=== PATIENT | male | born 2000 | race Caucasian/White ===

== ENCOUNTER 2021-05-25 07:38 | Emergency (ER) | payer SELFPAY ==
[2021-05-25] MEDS ORDERED: TETANUS & DIPHTHERIA TOX,ADULT 0.5 ML VIAL ONE (08:43)
[2021-05-25] MEDS ORDERED: AMOX/K CLAV 875 MG TAB ONE (08:43)
--- NOTE | 2021-05-25 09:38 | EDPHYS ---
Physician Documentation [facility] Name: Suhail Sanz Age: 20 yrs Sex: Male : 2000 Arrival Date: 05/25/2021 Time: 07:39 Bed 13 Private MD: ED Physician Danis Plasencia HPI: 05/25 07:47 This 20 yrs old Male presents to ER via Unassigned with complaints of Dog pm1 Bite. 07:47 The patient was bitten on the dorsal aspect of right forearm and palmar aspect of right pm1 forearm, by a dog, Patient bitten by his own dog, he was attempting to break up a fight between his dog and raccoon. Patient denies being bitten by raccoon it was at least 2 to 3 feet from the dog, outdoors. Onset: The symptoms/episode began/occurred just prior to arrival. Animal information: The animal was reported to appear healthy. Animal's vaccinations are up to date. Secondary to the bite the patient reports an abrasion, 2 superficial puncture wounds to right forearm. Associated signs and symptoms: The patient has no apparent associated signs or symptoms. The patient has not experienced similar symptoms in the past. The patient has not recently seen a physician. 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 - Social history:: Smoking status: Patient denies any tobacco usage or history of. ROS: 07:47 Constitutional: Negative for fever, chills, and weight loss, Cardiovascular: Negative pm1 for chest pain, palpitations, and edema, Respiratory: Negative for shortness of breath, cough, wheezing, and pleuritic chest pain. 07:47 Neuro: Negative for headache, weakness, numbness, tingling, and seizure. 07:47 MS/extremity: Positive for abrasion, puncture, of the palmar aspect of right forearm and dorsal aspect of right forearm. 07:47 Skin: Positive for Areas as noted in MS/Extremity exam. 07:47 All other systems are negative. Exam: 07:47 Constitutional: This is a well developed, well nourished patient who is awake, alert, pm1 and in no acute distress. Head/Face: Normocephalic, atraumatic. 07:47 Eyes: Exam is negative for acute changes, Extraocular movements: intact throughout. 07:47 ENT: Exam is negative for acute changes, Mouth: no acute changes, Lips: normal, moist, Oral mucosa: normal, pink and intact, moist. 07:47 Cardiovascular: Exam negative for acute changes, Rate: normal, Rhythm: regular, Pulses: no pulse deficits are appreciated. 07:47 Respiratory: Exam negative for acute changes, respiratory distress, shortness of breath. 07:47 Musculoskeletal/extremity: Extremities: grossly normal except: noted in the palmar aspect of right forearm and dorsal aspect of right forearm: abrasion, 2 superficial puncture wound, There is no evidence of laceration, Circulation is intact in all extremities. Sensation intact. 07:47 Skin: Appearance: normal except for affected area, injury, As noted in musculoskeletal/extremity exam. 07:47 Neuro: Exam negative for acute changes, Orientation: is normal, Mentation: is normal, Motor: is normal, moves all fours. Vital Signs: 07:50 BP 145 / 93; Pulse 94; Resp 16; Temp 98.0; Pulse Ox 99% ; Weight 56.7 kg; Height 5 ft. ll1 10 in. (177.80 cm); Pain 5/10; 07:50 Body Mass Index 17.94 (56.70 kg, 177.80 cm) ll1 MDM: 07:41 Patient medically screened. pm1 08:04 Data reviewed: vital signs. Data interpreted: Pulse oximetry: on room air is 99 %. pm1 Interpretation: normal. 09:36 Counseling: I had a detailed discussion with the patient and/or guardian regarding: the pm1 historical points, exam findings, and any diagnostic results supporting the discharge/admit diagnosis, radiology results, the need for outpatient follow up, to return to the emergency department if symptoms worsen or persist or if there are any questions or concerns that arise at home. 05/25 07:47 Order name: Forearm Right XRAY pm1 Administered Medications: 08:25 Drug: Tetanus-Diphtheria Toxoid Adult 0.5 ml {Laboratory Development Technician: [employer]. Exp: jw6 12/11/2022. Lot #: [id number]. } Route: IM; Site: right deltoid; 08:27 Follow up: Response: No adverse reaction jw6 08:26 Drug: Augmentin (Amoxicillin-Clavulanate) 875 mg Route: PO; jw6 08:27 Follow up: Response: No adverse reaction jw6 Disposition: 23:00 Co-signature as Attending Physician, Danis Plasencia MD. 7 Disposition Summary: 05/25/21 09:37 Discharge Ordered Location: Home pm1 Problem: new pm1 Symptoms: have improved pm1 Condition: Stable pm1 Diagnosis - Bitten by dog pm1 - Abrasion of right forearm pm1 - Puncture wound without foreign body of forearm pm1 Followup: pm1 - With: Emergency Department - When: As needed - Reason: Worsening of condition Followup: pm1 - With: Private Physician - When: 2 - 3 days - Reason: Recheck today's complaints, Continuance of care, Re-evaluation by your physician Discharge Instructions: - Discharge Summary Sheet pm1 - Abrasion pm1 - Puncture Wound pm1 - Animal Bite, Adult pm1 Forms: - Medication Reconciliation Form pm1 - Thank You Letter pm1 - Antibiotic Education pm1 - Prescription Opioid Use pm1 Prescriptions: - Augmentin 875-125 mg Oral Tablet - take 1 tablet by ORAL route every 12 hours for 10 days; 20 tablet; Refills: 0, pm1 Product Selection Permitted Signatures: Dispatcher [employer] Raymond Brown NP FREIGHT FLAGMAN pm1 Teo Perez, RN RN 1 Danis Plasencia MD MD [facility] Dior Mcmanus [facility]
--- NOTE | 2021-05-25 09:38 | ER ---
Nurse's Notes [facility] Name: Suhail Sanz Age: 20 yrs Sex: Male : 2000 Arrival Date: 05/25/2021 Time: 07:39 Bed 13 Private MD: Diagnosis: Bitten by dog;Abrasion of right forearm;Puncture wound without foreign body of forearm Presentation: 05/25 07:50 Chief complaint: Patient states: Dog bite to R arm 30 min [employer]ETING/[employer] P[employer]. Tried to break up his ll1 dog from fighting with a raccoon. Bleeding controlled. Abrasions and puncture wound noted. Coronavirus screen: Vaccine status: Patient reports receiving the 2nd dose of the covid vaccine. Client denies travel out of the [place] in the last 14 days. At this time, the client does not indicate any symptoms associated with coronavirus-19. Ebola Screen: Patient denies travel to an Ebola-affected area in the 21 days before illness onset. Initial Sepsis Screen: Does the patient meet any 2 criteria? HR > 90 bpm. No. Patient's initial sepsis screen is negative. Does the patient have a suspected source of infection? Yes: Skin breakdown/wound. Risk Assessment: Do you want to hurt yourself or someone else? Patient reports no desire to harm self or others. Onset of symptoms was May 25, 2021. 07:50 Method Of Arrival: Ambulatory [facility] 07:50 Acuity: LYNSEY 4 ll1 Triage Assessment: 07:52 Bite description: bite sustained to right arm is superficial, from animal, was ll1 sustained less than 30 minutes ago. by a dog, animal information: vaccination(s) is current. General: Appears in no apparent distress. Behavior is calm, cooperative, appropriate for age. Pain: Complains of pain in right arm Quality of pain is described as aching. Derm: abrasions and puncture wound R arm. Musculoskeletal: Circulation, motion, and sensation intact. Capillary refill < 3 seconds, Range of motion: intact in all extremities, Swelling present in right arm. Musculoskeletal: Tenderness present in right arm Reports pain in right arm. Injury Description: Bite caused by a dog. 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 - Social history:: Smoking status: Patient denies any tobacco usage or history of. Screenin:52 Abuse screen: Denies threats or abuse. Nutritional screening: No deficits noted. ll1 Tuberculosis screening: No symptoms or risk factors identified. 08:21 Fall Risk None identified. jw6 Assessment: 08:21 General: Appears in no apparent distress. Behavior is calm, cooperative. Pain: jw6 Complains of pain in right arm Pain does not radiate. Pain currently is 3 out of 10 on a pain scale. Neuro: No deficits noted. Cardiovascular: No deficits noted. Respiratory: No deficits noted. GI: No deficits noted. : No deficits noted. EENT: No deficits noted. Derm: Skin scatter puncture wounds and abrasions Skin is pink, warm \T\ dry. Musculoskeletal: No deficits noted. Vital Signs: 07:50 BP 145 / 93; Pulse 94; Resp 16; Temp 98.0; Pulse Ox 99% ; Weight 56.7 kg; Height 5 ft. ll1 10 in. (177.80 cm); Pain 5/10; 07:50 Body Mass Index 17.94 (56.70 kg, 177.80 cm) ll1 ED Course: 07:39 Patient arrived in ED. as 07:40 Arm band placed on Patient placed in an exam room, on a stretcher. ll1 07:41 Raymond Griffiths NP is PHCP. pm1 07:41 Danis Plasencia MD is Attending Physician. pm1 07:46 Dior Mcmanus is Primary Nurse. jw6 07:51 Triage completed. ll1 07:52 Patient has correct armband on for positive identification. Bed in low position. Call [facility] light in reach. Side rails up X 1. Pulse ox on. NIBP on. 07:56 [facility] notified and given information for dog bite, sending an officer over to see 1 patient. 08:00 Forearm Right XRAY In Process Unspecified. EDMS 08:21 No provider procedures requiring assistance completed. jw6 09:45 Patient did not have IV access during this emergency room visit. jw6 Administered Medications: 08:25 Drug: Tetanus-Diphtheria Toxoid Adult 0.5 ml {Foreman/Pile Driving And Erection: [employer]. Exp: jw6 12/11/2022. Lot #: [id number]. } Route: IM; Site: right deltoid; 08:27 Follow up: Response: No adverse reaction jw6 08:26 Drug: Augmentin (Amoxicillin-Clavulanate) 875 mg Route: PO; jw6 08:27 Follow up: Response: No adverse reaction jw6 Outcome: 09:37 Discharge ordered by . pm1 09:45 Discharged to home ambulatory. jw6 09:45 Condition: good 09:45 Discharge instructions given to patient, Instructed on discharge instructions, follow up and referral plans. medication usage, Demonstrated understanding of instructions, follow-up care, medications, wound care, Prescriptions given X 1. 09:45 Patient left the ED. jw6 Signatures: Dispatcher [employer] EDEstrella Yanez Patrick, NP CLINICAL LABORATORY MEDICAL DIRECTOR pm1 Teo Perez RN RN ll1 Dior Mcmanus jw6
[2021-05-25 09:50] VITALS: BP 145/93; TEMP 98; O2SAT 99
--- NOTE | 2021-05-25 11:11 | RAD REPORT ---
EXAM DESCRIPTION: RAD - Forearm Right - 05/25/2021 8:00 am CLINICAL HISTORY: ANIMAL BITE COMPARISON: No comparisons FINDINGS: No fracture, dislocation or radiopaque foreign body. No soft tissue gas.
== END 2021-05-25 09:45 | disposition home or self-care (01) ==
LOC: ER 07:38
DX: S51.851A Open bite of right forearm, initial encounter (principal); S51.831A Puncture wound without foreign body of right forearm, initial encounter; S50.811A Abrasion of right forearm, initial encounter; W54.0XXA Bitten by dog, initial encounter; Y93.89 Activity, other specified; Y92.9 Unspecified place or not applicable; Y99.8 Other external cause status; Z23 Encounter for immunization
CPT/HCPCS: 90471; 90714; 99284